=== PATIENT | male | born 1955 | race Caucasian/White ===

== ENCOUNTER → 2016-12-29 | Outpatient (CLI) | payer BC ==
[~2016-12-29] MED LIST: AMLODIPINE-BEN1 EAC1 PO; BUSPAR15 M1 PO; MUCINEX D ER T1 EACH PO; MULTIPLE VITAMI1 T11 PO; SIMVASTATIN40 MG PO; ZOLOFT PO
--- NOTE | ~2016-12-29 | CR7 ---
[facility] A Service of [facility] & [facility] RADIOLOGY TEXT RESULTS PATIENT: KEIRY RODRIGUEZ LOCATION: [facility] : 51 UNIT #: [id number] AGE: [address]: Ant Camarena MD SEX: M ORDER DR: [id number] [facility] [address] [facility] [address]. [place], [place] [address] [id number] O MR#: [id number] Acc #: [id number] NAME: KEIRY RODRIGUEZ : 1955 SEX: M STUDY DATE/TIME: 12/29/2016 08:13 UNIT: [facility] ROOM: STUDY DESCRIPTION: CR Abdomen Single AP View Attending Physician: Ant Camarena M.D. Referring Physician: Ant Camarena M.D. Ordering Physician: Ant Camarena M.D. Primary Care Physician: Myra Abarca M.D. MEDICAL IMAGING REPORT This report is preliminary unless electronic signature is present EXAM Abdomen one-view 12/29/2016 0813 hours CLINICAL HISTORY Patient passed a kidney stone 2 weeks ago. Pain for 2 weeks. COMPARISON None. FINDINGS Supine view of the abdomen and pelvis and a cone view over the kidneys demonstrates a nonspecific bowel gas pattern. There is no obstruction. No stones are seen over the kidneys or left ureter. There is a stone or partial staghorn calculus over the lower pole location of the right kidney measuring up to 3.2 x 2.2 cm with additional vqh-bz-[id number] pole stone measuring 1.7 cm. There is a small right-sided pelvic calcification to the right of the dvg-uc-mdynk sacrum measuring 4 mm. This could represent a vascular calcification or a distal ureteral stone. I do not have prior studies to assess for stability. There is sclerotic degenerative change at both sacroiliac joints and the pubic symphysis. IMPRESSION 1. No left renal or ureteral stones are seen. 2. On the right side, there appears to be a partial staghorn calculus in the lower pole right kidney measuring up to 3.2 x 2.2 cm with smaller stone or cluster of stones in the [id number]-dp-mjspg pole laterally measuring 1.7 cm. 3. There is a 4 mm calcification to the right of the sacrum and the pelvis which could represent avascular calcification versus a distal ureteral calculus. Correlate with historical images. 4. There is sclerotic degenerative spurring at the sacroiliac joints and the pubic symphysis. [facility]. [facility] A Service of [facility] & [facility] RADIOLOGY TEXT RESULTS PATIENT: KEIRY RODRIGUEZ LOCATION: [facility] : 51 UNIT #: [id number] AGE: [address]: Ant Camarena MD SEX: M ORDER DR: Dictated by... Valery Hope M.D. THIS IS AN ELECTRONICALLY VERIFIED REPORT Valery Hope M.D. at 12/30/2016 2:31 PM DORIAN/yoan TD: 12/30/2016 12:40 JOB #: [id number] MEDICAL IMAGING REPORT Page 1 of 1 COPY
== END | disposition home or self-care (01) ==
LOC: CRAD 07:51
DX: R10.9 Unspecified abdominal pain (principal); N20.0 Calculus of kidney; M53.3 Sacrococcygeal disorders, not elsewhere classified
CPT/HCPCS: 74000